=== PATIENT | female | born 1990 | race Caucasian/White ===

== ENCOUNTER → 2023-10-14 20:31 | Outpatient (REF) | payer BC, SELFPAY | LOC: MRI 20:31 | PROVIDERS: ATTENDING PHYSICIAN Neurological Surgery; FAMILY PHYSICIAN Family Medicine | DX: M48.02 Spinal stenosis, cervical region (principal); Z98.1 Arthrodesis status | CPT/HCPCS: 72141 ==

== ENCOUNTER → 2024-04-07 06:43 | Outpatient (REF) | payer BC, OTHER, SELFPAY | LOC: EMG 06:43 | PROVIDERS: ATTENDING PHYSICIAN Orthopaedic Surgery Hand Surgery; FAMILY PHYSICIAN Family Medicine | DX: R20.2 Paresthesia of skin (principal) | CPT/HCPCS: 95886; 95911 ==

== ENCOUNTER → 2024-06-16 10:44 | Outpatient (REF) | payer BC, OTHER, SELFPAY ==
[2024-06-16 13:04] LABS: ALT (SGPT) 49 U/L (0-35); AST (SGOT) 28 U/L (14-36)
[2024-06-16 13:20] LABS: Free T3 3.89 pg/ml (2.77-5.27); Free T4 0.92 ng/dl (0.78-2.19)
[2024-06-16 13:32] LABS: TSH 2.32 uIU/ml (0.47-4.68)
== END ==
LOC: RAD 10:44
PROVIDERS: ATTENDING PHYSICIAN Neurological Surgery; FAMILY PHYSICIAN Family Medicine; REFERRING PHYSICIAN Internal Medicine Endocrinology, Diabetes & Metabolism
DX: M53.2X2 Spinal instabilities, cervical region (principal); Z98.1 Arthrodesis status; M48.02 Spinal stenosis, cervical region; E05.90 Thyrotoxicosis, unspecified without thyrotoxic crisis or storm
CPT/HCPCS: 36415; 72052; 84439; 84443; 84450; 84460; 84481

== ENCOUNTER → 2024-11-30 08:26 | Outpatient (REF) | payer BC, OTHER, SELFPAY | LOC: WDC 08:26 | PROVIDERS: ATTENDING PHYSICIAN Nurse Practitioner Adult Health; FAMILY PHYSICIAN Family Medicine | DX: R92.8 Other abnormal and inconclusive findings on diagnostic imaging of breast (principal) | CPT/HCPCS: 76642 ==